=== PATIENT | female | born 1980 | race Caucasian/White ===

== ENCOUNTER → 2016-05-13 | Outpatient (CLI) | payer OTHER ==
--- NOTE | 2016-05-13 13:52 | US ---
May 13, 2015 Dear Providers at [facility], Thank you for requesting consultation and a detailed obstetrical ultrasound for Mrs. Castano secondary to advanced maternal age and exposure to styrene. As you know, Susan is a 35 year-old 2, para 1001. Her due date is 08/26/16 by LMP and first trimester ultrasound (baby was 6 days larger). Her current gestational age based on this dating is 25 weeks 0 days. Her genetic screening revealed a r eassuring NIPT. Susan reports that she has had a styrene exposure through the pipes at her rental. Both she and her hu hirenand experienced headaches, and nausea and vomiting for about a 7-10 days span and would have to yuli ve the house frequently to feel better. She states that the city had been out on several conditions to inspect but by her report nothing was done and it was said to be a problem with the house as this procedure of blowing styrene through the pipes is common. Ultimately, she has moved in with family t o keep herself from being sick and out of concern for her . ULTRASOUND Number of fetuses: 1 Placental location: Anterior Placental Cord Insertion: Intraplacental presentation: Cephalic Cervix: 5.5 cm viewed transabdominally Maximum vertical pocket: 4.7 cm The adnexa were evaluated. No pathology was seen. Right ovary is visualized and appears normal. It measures 2.1 x 1.2 x 2.3 cm. Left ovary is visualized with an unresolved corpus luteum. The ovary measures 2.0 x 1.3 x 2.5 cm. MEASUREMENTS: Biparietal diameter: 65 mm 26 weeks, 3 days Head circumference: 242 mm 26 weeks, 3 days Abdominal circumference: 227 mm 27 weeks, 1 days Femur length: 50 mm 27 weeks, 0 days Humerus length: 46 mm 27 weeks, 1 days Transcerebellar diameter: 29 mm 25 weeks, 3 days Average ultrasound age: 26 weeks, 6 days Estimated weight: 1002 gm weight percentile: 98 %; if dates are adjusted to her first ultrasound ([place] and consistent with my ultrasound at 12 weeks) the baby measures at the 83rd%ile. ANATOMY Supratentorial brain: Normal including choroids, falx and cavum septum pellucidum Lateral Ventricle: Normal; measurement: 3.6 mm Posterior fossa: Normal including the cerebellum and cisterna magna Spine: Normal Nuchal fold: not applicable at this gestational age Face: Normal views of the lip and nose area Profile: Normal Palate: Limited, but normal appearing views Cardiac Exam: Four chamber view of the heart: Normal including intraventricular septum Left Ventricular Outflow Tract: Normal Right Ventricular Outflow Tract: Normal 3 Vessel View: Normal Tracheal View: Suboptimal Aortic Arch: Normal Ductal Arch: Normal SVC/IVC: Normal Heart Rate: 146 bpm Diaphragm: No overt abnormalities have been detected Stomach: Normal Umbilical cord insertion: Normal Right kidney: Normal Left kidney: Normal Bladder: Normal Number of cord vessels: Three Upper extremities: Normal including the number, and architecture Lower extremities: Normal including the number and architecture Gender: Female IMPRESSION: 1. Intrauterine at 25w 0d, ROLO of 08/26/16. Suspect a dating discrepancy based on 910 we ek ultrasound performed in [place] consistent with my 12 week ultrasound. Recommend redating the pre gnancy to ROLO of 08/20/16. 2. Today's sonogram reveals a normal appearing fetus. 3. Cervical length measures 5.5 cm, and is without evidence of insufficiency. 4. Advanced maternal age; reassuring NIPT. 5. Styrene exposure RECOMMENDATIONS: I was pleased to review today's ultrasound with your patient. I have reassured her that the gr owth and amniotic fluid volume are appropriate for this gestational age. The detailed anatomic surve y did not reveal any overt abnormalities. Susan is aware that ultrasound is a screening tool an d cannot provide definitive genetic diagnosis. Should she desire definitive genetic diagnosis, she w ould need to have a genetic amniocentesis performed. After our discussion regarding the procedure, b enefits, risks, alternatives, and limitations to the information received Susan DECLINES amniocentesis. We also spent time reviewing the available data regarding styrene as it relates to . This i s an environmental toxin with exposure data for humans in industrial positions. There is also animal data available. I gave Susan a copy of the REPROTOX data that has been collected. She is aware that it is a hydrocarbon used int he manufacture of plastics and synthetic rubbers. She did experience sy mptoms as related to the exposure by her report that were irritants including headaches and nausea th at all resolved when she was away from her home. The data on styrene is that it should not increase the risk of defects. The other data regarding occupational exposure is mixed and mainly pertai ns to reproductive risk. I did explain that ultrasound evaluates for abnormal structure but cannot e mercy evaluate for function or development. Given the exposure, I did recommend ultrasound monthly to assure appropriate interval growth. In summary, I recommend: 1. Growth monthly through the remainder of . 2. Reassurance given for the normal appearance of the anatomy on today's ultrasound. I am hopeful t hat her exposure risk is limited and that her personal risk is low. Future ultrasound and consultation is left to your clinical discretion. Thank you for allowing me the opportunity to consult and evaluate your patient. Should you have any questions or concerns please do not hesitate to contact me. This visit was approximately 25 minutes in length with 15 minutes spent in direct face to face consultation reviewing aneuploidy screening ve rsus definitive genetic diagnosis. Sincerely, Lucina James MD [employer] Maternal Medicine Department of Obstetrics & Gynecology [facility]
--- NOTE | 2016-05-13 15:26 | US ---
Detailed Obstetric Ultrasound Indication: Evaluate growth and anatomy. Patient exposed to styrene. Advanced maternal age. Comparison: February 12, 2016 Dr. Lucina James was present during imaging. Findings: Biometry: Average gestational age by ultrasound: 26 weeks 6 days with EDC by ultrasound of August 13, 2016. Estimated gestational age by corrected LMP: 25 weeks 6 days within EDC by corrected LMP of August 20, 2016. Maternal Ovaries: Normal in appearance with the left ovary measuring 1.2 x 0.9 x 1.4 cm in the right ovary measuring 2.3 x 1.2 x 2.1 cm. Number: 1 Presentation: Vertex Placental location: Anterior without previa. Central umbilical cord insertion. Cervix: 5.5 cm from transabdominal measurement Amniotic fluid maximum vertical pocket: 4.7 cm Biparietal diameter: 26 weeks 3 days, 6.53 cm Head circumference: 26 weeks 3 days, 24.24 cm Abdominal circumference: 27 weeks 1.0 day, 22.70 cm Femur length: 27 weeks, 5.02 cm Humerus length: 27 weeks 1.0 day, 4.59 cm Transcerebellar diameter: 25 weeks 3 days, 2.90 cm Estimated weight is 1002 gms ( 2 pounds 3 ounces ). The estimated weight is at the 98th p ercentile based on LMP. Anatomy Survey: Supratentorial brain: Normal Posterior fossa: Normal Spine: Normal Nose and lips: Normal Profile: Normal Heart: Four chamber heart with normal interventricular septum heart rate of 146 bpm. RVOT: Normal LVOT: Normal Stomach: Normal Bowel: Normal echogenicity. Umbilical cord insertion: Normal Kidneys: Normal, no pyelectasis Bladder: Normal Number of cord vessels: Three Upper extremities: Normal Lower extremities: Normal Gender: Female Impression: 1. Living cloud in vertex presentation. 2. There has been adequate interval growth since the prior study. The estimated weight is at th e 83rd percentile with respect to corrected LMP. 3. Unremarkable anatomy. No anomalies detected.
== END ==
LOC: FIMAGING 10:13
PROVIDERS: ATTEND Obstetrics & Gynecology
DX: O09.522 Supervision of elderly multigravida, second trimester (principal); Z3A.25 25 weeks gestation of pregnancy; Z77.9 Other contact with and (suspected) exposures hazardous to health

== ENCOUNTER → 2016-06-10 | Outpatient (CLI) | payer OTHER ==
--- NOTE | 2016-06-10 10:49 | US ---
June 10, [address] Waldrop and [facility] Providers, Thank you for requesting consultation and a follow up ultrasound for your patient, Ms. Fredy hartmann. As you know, Susan is a 35 year old G 2, P 1001 . Her due date is 08/26/16 by LMP and your first trimester ultrasound (6 days different). On imaging done in our office we suggested and ROLO of secondary to macrosomia. Her current gestational age based on this dating is is 29 weeks 6 days. She is seen today for a follow up assessment of growth. In our previous consultation we discussed e xposure to Styrene in , please see my previous report. Susan performed a Glucola but it was not processed in the appropriate time frame. She was 15 minutes l ate with a result of 90 mg/dL. ULTRASOUND Number of fetuses: 1 Placental location: Anterior presentation: Cephalic Heart Rate: 143 bpm Cervix: 4.5 cm viewed transabdominally Maximum Vertical Pocket: 8.0 cm Amniotic fluid index: 16.9 cm Measurements: Biparietal diameter: 74 mm 30 weeks, 0 days Head circumference: 280 mm 30 weeks, 5 days Abdominal circumference: 283 mm 32 weeks, 3 days Femur length: 60 mm 31 weeks, 3 days Humerus length: 54 mm 31 weeks, 3 days Transcerebellar diameter: 36 mm 30 weeks, 1 days Average age by ultrasound: 21 weeks, 1 days Estimated weight: 1807 gm weight percentile: 92 % using ORLO of 08/20 or >98% using ROLO of 08/26/16. ANATOMY anatomy was previously assessed. Today the following structures were visualized and appeared n ormal: Stomach, bilateral kidneys, bladder, three-vessel cord, four-chamber view of the heart, right ventricular outflow tract, cerebellum, cavum septum pellucidum, lateral ventricle views of the lip and nose area, and limited views of the palate. IMPRESSION: 1. Intrauterine at 29 weeks, 6 days; ROLO of 08/20/16. 2. growth is macrosomic at the 92nd%ile with abdomen over 2 weeks ahead of biometry. 3. anatomy was previously assessed and today's ultrasound continues to provide reassurance of normal appearing anatomy. 4. Normal amniotic fluid volume RECOMMENDATIONS: We reviewed today's ultrasound findings. The baby is macrosomic with the abdomen measuring ove r 2 weeks ahead of the other biometry. The amniotic fluid volume is normal. Our review of the anatomy is normal. We discussed the sizing of the baby and reviewed her most recent Glucola. Given that it was not proc essed in the appropriate time frame and her fetus is measuring larger, I do recommend a repeat evalua tion. If she exceeds 130 mg/dL, I would do a 3 hour GTT to assure an appropriate evaluation or you c ould just move to a 3 hour GTT for testing. Susan asked if this meant she would delivery early. I explained that we do not recommend delivery befor e 39 weeks as it did not improve the ability for a vaginal attempt and perhaps incurred additio nal maternal/ risks. However, delivery at 39 weeks and beyond is preserved. We are happy to reassess growth at 34-36 weeks at your clinical discretion. Thank you for allowing us the opportunity to evaluate your patient. Should you have any further ques tions or concerns please do not hesitate to contact me. Approximately 15 minutes were spent with the patient and 10 minutes were spent in face to face consu ltation. Lucina James MD [employer] Maternal Medicine Diagnosis Department of Obstetrics & Gynecology [facility]
--- NOTE | 2016-06-10 18:40 | US ---
Ultrasound Obstetric Follow Up Indication: Follow-up growth. The estimated gestational age by LMP is 29 weeks and 6 days yielding an EDC of 08/20/2016. Comparison: May 13, 2016 Findings: Number: 1 Presentation: Vertex Placental Location: Anterior without previa Cervix: 4.5 cm Amniotic MVP: 8 cm, amniotic fluid index 16.9 cm BIOMETRY: Biparietal Diameter: 74.45 mm 30 weeks, 0 days Head Circumference: 279.50 mm 30 weeks, 5 days Abdominal Circumference: 282.75 mm 32 weeks, 3 days Femur Length: 60.33 mm 31 weeks, 3 days Humerus Length: 53.93 mm 31 weeks, 3 days Transcerebellar Diameter: 36.26 mm 30 weeks, 1 days HC/AC: 0.99 (0.99-1.21) FL/BPD: 81% FL/AC: 21% Average Ultrasound Age: 31 weeks, 1 days EDC based on today's average ultrasound age: 408/11/2016 Estimated weight is 1807 gms +/- 264 gms. The estimated weight is at the 92 % based on pr evious dating. ANATOMY: Previous evaluated. FHR 143 bpm. On today's study the stomach, bilateral kidneys, bladder, three-vessel cord, four-chambe r view of the heart, demonstrate no definite abnormalities. Impression: 1. Living cloud in vertex presentation. 2. Macrosomia at the 92 percentile. 3. Normal amniotic fluid volume. 4. Please see Dr. Lucina James's consult and recommendations.
== END ==
LOC: FIMAGING 09:50
PROVIDERS: ATTEND Obstetrics & Gynecology
DX: O36.63X0 Maternal care for excessive fetal growth, third trimester, not applicable or unspecified (principal); O09.523 Supervision of elderly multigravida, third trimester; Z3A.29 29 weeks gestation of pregnancy; Z77.9 Other contact with and (suspected) exposures hazardous to health

== ENCOUNTER → 2016-07-28 | Day surgery (SDC) | payer OTHER ==
[~2016-07-28] MED LIST: BUPIVACAINE 0.5% 30 ML SDV ONE; BUPIVACAINE/EPI 0.5% 30 ML SDV ONE; LIDO/EPI 1% **for epidural** 30 ML SDV ONE; OXYCODONE/APAP 5/325 TAB PO SCH; THROMBIN (BOVINE) 20,000 UNIT VIAL TP ONE
--- NOTE | 2016-07-28 16:45 | EDPHY ---
HPI/HX/ROS/PE/MDM Narrative: CHIEF COMPLAINT: with hemorrhoids. HPI: The patient is a 35-year-old female 37 weeks who presents with hemorrhoids that began a week ago and have been worsening over that period of time. She does have a history of hemorrhoids and has had to have 3 surgically removed. The hemorrhoids today are worse than usual for her. She denies fever, vomiting, diarrhea, shortness of breath, or other complaints. She has been treating the hemorrhoids with hemorrhoid creams and ice to no effect. REVIEW OF SYSTEMS: Aside from elements discussed in the HPI, a comprehensive 10-point review of systems was reviewed and is negative. PMH: Hemorrhoids. SOCIAL HISTORY: Mother. PHYSICAL EXAM: General: Patient is alert, in no acute distress. ENT: Eyes are normal to inspection. ENT inspection normal. Neck: Normal inspection. Full range of motion. Respiratory: No respiratory distress. Breath sounds normal bilaterally. Cardiovascular: Regular rate and rhythm. Strong peripheral pulses. Abdomen: The abdomen is nontender to palpation. There are no peritoneal signs. There are normal bowel sounds. Rectal exam: Large thrombosed external hemorrhoid. Back: Normal to inspection. No tenderness to palpation. Skin: Normal color. No rash. Warm and dry. Extremities: Normal appearance. Full range of motion. Neuro: Oriented x3. Normal motor function. Normal sensory function. Portions of this note were transcribed by an ED scribe. I personally performed the history, physical exam, and medical decision making; and confirm the accuracy of the information in the transcribed note. ED Course: 1650: Consulted with Dr. Camarillo, surgery. He will assess the patient in the emergency department. 1739: Consulted with Dr. Camarillo. He will take the patient to the OR. General Time Seen by Provider: 07/28/16 16:40 Initial Vital Signs: Initial Vital Signs Temperature (C) 36.6 C 07/28/16 16:22 Heart Rate 90 07/28/16 16:22 Respiratory Rate 18 07/28/16 16:22 Blood Pressure 118/78 07/28/16 16:22 O2 Sat (%) 98 07/28/16 16:22 O2 Delivery Mode Room Air Allergies/Adverse Reactions: Sulfa (Sulfonamide Antibiotics) Allergy (Unknown, Verified 05/06/15 18:29) as med Home Medications: Medication Instructions Recorded NK [No Known Home Meds] 05/06/15 Departure - Departure Disposition: To OP Cath/Surgery Clinical Impression: External hemorrhoid, thrombosed Condition: Fair Referrals: VENITA RENDON [Other] - As per Instructions Report Scribed for: Yang Nair Report Scribed by: Ten Paris Date of Report: 07/28/16 Time of Report: 16:45
[2016-07-28 18:36] VITALS: BP 120/70; PULSE 89; RESP 16; TEMP 98.4; O2SAT 99
--- NOTE | 2016-07-28 20:09 | GHP ---
[f rep st] PREOP HISTORY AND PHYSICAL DATE OF ADMISSION: 07/28/2016 HISTORY OF PRESENT ILLNESS: A 35-year-old female who is 37 weeks who presents with thrombo sed external hemorrhoid. They are quite painful. She is admitted at this time for external hemorrh oidectomy. Risks and options have been fully discussed and she wishes to proceed. PAST MEDICAL HISTORY: Includes a previous hemorrhoidectomy many years ago. 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 PAST SURGICAL HISTORY: Had some nasal surgery and multiple orthopedic procedures. MEDICATIONS: None. ALLERGIES: Sulfa. REVIEW OF SYSTEMS: Reveals no cardiopulmonary symptoms, diabetes, asthma, any other major medical p roblems on a full review of systems. SOCIAL HISTORY: She does not smoke. FAMILY HISTORY: Noncontributory. PHYSICAL EXAMINATION: GENERAL: An alert 35-year-old female in no acute distress. HEAD AND NECK: No adenopathy or icterus or thyromegaly. CHEST: Clear and symmetric. CARDIAC: Regular rhythm. A BDOMEN: Soft. She is 37 weeks . There are no hernias. EXTREMITIES: Full range of motion . Full pulses. RECTUM: Two areas of thrombosed external hemorrhoids which are quite tender. Unab le to be fully examined in the emergency room. IMPRESSION: Thrombosed external hemorrhoids. PLAN: Excision. Risks and options have been fully discussed and she wishes to proceed. /[id number]/MODL
== END | disposition home or self-care (01) ==
LOC: FSGY 18:34
PROVIDERS: ATTEND Surgery
PROC: 06BY0ZC Excision of Hemorrhoidal Plexus, Open Approach (ICD-10-PCS; principal; 2016-07-28 19:25)
DX: O22.43 Hemorrhoids in pregnancy, third trimester (principal); Z3A.37 37 weeks gestation of pregnancy

== ENCOUNTER 2016-08-22 06:00 | Inpatient (IN) | payer OTHER ==
[2016-08-22] MEDS ORDERED: OXYTOCIN/RINGERS LACTATE 1,000 ML IV PRN (07:18)
[2016-08-22] MEDS ORDERED: OLIVE OIL 118 ML BTL MISC PRN (07:18)
[2016-08-22] MEDS ORDERED: LR 1,000 ML IV PRN (07:18)
[2016-08-22] MEDS ORDERED: TERBUTALINE SULFATE 1 MG/ML VIAL IV PRN (07:18)
[2016-08-22] MEDS ORDERED: LIDOCAINE 1% 30 ML SDV SC PRN (07:18)
[2016-08-22] MEDS ORDERED: EPSOM SALT 454 GM TP PRN (07:18)
[2016-08-22 07:47] LABS: % IMMATURE GRANULYOCYTES 0.9 % (0.0-1.1); ABSOLUTE IMMATURE GRANULOCYTES 0.08 10^3/uL (0.00-0.10); ADD DIFF? NO; ADD MORPH? NO; ADD SCAN? NO; ATYPICAL LYMPHOCYTE FLAG 0 (0-99); FRAGMENT RBC FLAG 0 (0-99); HEMATOCRIT 39.3 % (38.0-47.0); HEMOGLOBIN 13.2 g/dL (12.6-16.3); LEFT SHIFT FLG 0 (0-99); LIPEMIA HEMOLYSIS FLAG 80 (0-99); MEAN CELL HEMOGLOBIN 29.9 pg (27.9-34.1); MEAN CELL HEMOGLOBIN CONCENTR. 33.6 g/dL (32.4-36.7); MEAN CELL VOLUME 88.9 fL (81.5-99.8); MEAN PLATELET VOLUME 10.8 fL (8.7-11.7); PLATELET CLUMPS FLAG 10 (0-99); PLATELET COUNT 228 10^3/uL (150-400); RED BLOOD CELL COUNT 4.42 10^6/uL (4.18-5.33); RED CELL DISTRIBUTION WIDTH 13.4 % (11.5-15.2)
[2016-08-22] MEDS ORDERED: OXYTOCIN/LR *STANDARD DOSE PROTOCOL IV SCH (08:30)
[2016-08-22] MEDS ORDERED: OLIVE OIL 118 ML BTL ONE (09:42)
[2016-08-22] MEDS ORDERED: LIDOCAINE 1% 30 ML SDV ONE (09:42)
[2016-08-22] MEDS ORDERED: AMMONIA AROMATIC 1 EACH AMP IH ONE (09:43)
[2016-08-22] MEDS ORDERED: MISOPROSTOL 200 MCG TAB ONE (09:43)
[2016-08-22] MEDS ORDERED: OXYTOCIN 10 UNIT/ML VIAL ONE (09:43)
[2016-08-22] MEDS ORDERED: TERBUTALINE SULFATE 1 MG/ML VIAL ONE (09:43)
[2016-08-22] MEDS ORDERED: LIDOCAINE 2% JELLY 5 ML TUBE ONE (10:24)
[2016-08-22] MEDS ORDERED: fentaNYL 2MCG/ML/BUP 0.1% RTU 100 ML BAG EP ONE (11:07)
[2016-08-22] MEDS ORDERED: BUPIVACAINE 0.25% 30 ML SDV ONE (11:08)
[2016-08-22] MEDS ORDERED: PHENYLEPHRINE HCL 100 MCG/ML SYR ONE ×2 (11:08→19:29)
[2016-08-22] MEDS ORDERED: fentaNYL 100 MCG/2 ML INJ ONE ×2 (11:08→18:11)
[2016-08-22] MEDS ORDERED: PHENYLEPHRINE HCL 100 MCG/ML SYR IVP PRN (12:09)
[2016-08-22] MEDS ORDERED: ONDANSETRON 4 MG/2 ML VIAL IVP PRN (12:09)
--- NOTE | 2016-08-22 12:11 | GHP ---
[f rep st] PREOP HISTORY AND PHYSICAL DATE OF ADMISSION: 08/22/2016 ADMISSION DIAGNOSES: 1. Intrauterine at 40 and 2/7 weeks gestation. 2. Suspected macrosomia, declines primary low transverse section. HISTORY OF PRESENT ILLNESS: Patient is a 35-year-old, 2, para 0010, at 40 and 2/7 weeks ges tation. Patient initiated care at [facility] at 8 weeks 4 days. The was unplan [place], and patient took misoprostol to induce termination in the 1st trimester, but this failed. Afte r the failed termination, patient elected to continue on with the . Patient is dated by a 1st-trimester ultrasound. Patient's was complicated by early exposure to styrene for whic h she had serial growth ultrasounds. Patient's growth ultrasound showed an estimated weight o f 98th percentile. Patient in the suggested that she was further along with her . Her initial visit was at 8 weeks 4 days consistent with a 1st-trimester ultrasound. She did have an ultrasound several weeks later at an [facility] who suggested that her due date be changed so she would be 4 days further along. We ultimately, per patient request since it was just 5 days different, en ded up changing her due date to 08/20 instead of 08/26. The patient was followed with this pregnanc y with serial growth ultrasounds. The baby has consistently been greater than 98th percentile. Keli rosario had a final growth ultrasound done on Friday which showed an estimated weight of 10 pound s 14 ounces +/- 25 ounces. Estimated weight was essentially 5000 g. A long discussion was kee d with the patient about recommendation for primary low transverse section because of the s ignificant risk of shoulder dystocia if she does have a vaginal delivery. We had a very long discus mekhi about the rationale for this recommendation as well as the fact that growth ultrasounds of larg g-vku-yaxzkvvjjnb-age babies are less accurate, so this estimate could be over estimating or under e stimating the baby's weight. The patient has declined primary section and strongly desires to attempt a vaginal delivery. We have had a long discussion about the risks of Pitocin for prolon ged periods of time and a qbyhe-xam-hafynfepdir-age baby and increased risk of hemorrhage and the implications of that. Patient is agreeable to proceed with induction of labor. Patient do es not tolerate cervical exams well, and patient declined to have a Saldivar bulb placed in the office. We did attempt to place a Saldivar bulb with nitrous oxide while in the hospital, but patient was not able to tolerate the exam then either, so patient is going to have an epidural placed, and we will proceed from there. MEDICAL HISTORY: Significant for HSV 1. She does have a history of cold sores. No history of any genital outbreaks. 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 MEDICATIONS: vitamins and iron. SURGICAL HISTORY: Hemorrhoid surgery, cardiac ablation, foot surgery to remove a heel spur, nasal s eptoplasty, biopsy of benign lump in breast, therapeutic in 2013. ALLERGIES: Sulfa which she is not certain of the results. SOCIAL HISTORY: Patient is single, father of the baby is not involved in the at all. She works as an IT tech. She denies tobacco, alcohol, or drug use. FAMILY MEDICAL HISTORY: Noncontributory. [employer] HISTORY: Menarche age 13. Periods every 26-28 days, lasting 4 days. She is a 2, pa ra 0010. In 2013, she had a surgical termination of . Current has been uncompli cated with the exception of early attempt of termination with misoprostol which failed and styrene e xposure for which she had serial growth ultrasounds as this baby is suspected to be large for gestat ional age. Patient does have a history of abnormal Pap smears and HPV. Re-Paps have been negative. She has not had any procedures done on her cervix. She does have a history of HSV 1. No general outbreaks. PHYSICAL EXAMINATION: VITAL SIGNS: Stable. GENERAL APPEARANCE: Alert and oriented x3. HEART: R ate is regular regular. LUNGS: Clear to auscultation bilaterally. ABDOMEN: Gravid, nondistended, nontender. EXTREMITIES: Reveal no calf tenderness or edema. PELVIC: Her cervix is closed, soft, and posterior. Infant is in the vertex presentation. heart tracing was category 1, and she is having regular contractions. ASSESSMENT AND PLAN: 35-year-old, 2, para 0010, at 40 and 2/7 weeks gestation here for chapo ction of labor for suspected macrosomia. We have had a long discussion of the recommendations for p rimary low transverse section with an estimated weight of greater than 5000 g. Feng nt declines this and would like to have an induction of labor. She is receiving an epidural now, an d we will attempt to place a Saldivar catheter once the patient is more comfortable and able to tolerat e pelvic exams. We have had a long discussion about not doing high-dose Pitocin for long periods of time and re-evaluating in several hours. /[id number]/MODL
--- NOTE | 2016-08-22 12:17 | PREANESOB ---
Obstetric Pre-Anesthesia Info - General Info Proposed Procedure: Labor and delivery. : 2 Para: 0 WBD: 40 - Info Status: Full Term Monitors: External FHR Baseline (bpm): 130 FHR Pattern: Reassuring - Labor Status Cervical Dilation per last OB SVE: 0 Pitocin: In Use Indications for Labor Analgesia: Induction of Labor, Pain Control Labor Epidural: Proposed Anesthesia ROS: Previous general anesthesia without problem except possible recall during hemorrhoid surgery. Past cardiac ablation for WPW syndrome. Allergies/Adverse Reactions: Allergy/AdvReac Type Severity Reaction Status Date / Time Sulfa (Sulfonamide Allergy Unknown as med Verified 05/06/15 18:29 Antibiotics) Home Medications: Medication Instructions Recorded Vit27&Calcium/Iron/FA 1 tab PO DAILY 08/22/16 [] Visit Medications: Generic Name Dose Route Start Last Admin Trade Name Freq PRN Reason Stop Dose Admin Diphenhydramine HCl 25 - 50 mg 08/22/16 12:09 Benadryl Injection IVP 02/18/17 12:08 Q6HRS PRN Itching Lactated Ringer's 1,000 mls @ 0 mls/hr 08/22/16 07:18 08/22/16 08:40 Lr IV 02/18/17 07:17 1,000 mls PRN PRN Administration SEE PROTOCOL CONDITIONS Protocol Per Protocol Oxytocin/Lactated Ringer's 1,000 mls @ 150 mls/hr 08/22/16 07:18 Pitocin 20 Units/Lr (Premix) IV PRN PRN Post- bleeding Oxytocin/Lactated Ringer's 500 mls @ 0 mls/hr 08/22/16 08:30 08/22/16 08:41 Pitocin 30 Units/Lr (Premix) IV 02/18/17 08:29 500 mls CONT DARA Administration Protocol Per Protocol Fentanyl/Bupivacaine HCl 100 mls @ 0 mls/hr 08/22/16 12:30 Fentanyl/Bupivacaine/Ns 2 Mcg/Ml 0.1% (Premix EP 09/01/16 12:29 CONT DARA Protocol As Directed Lactated Ringer's 500 mls @ 0 mls/hr 08/22/16 12:30 Lr IV 02/18/17 12:29 CONT DARA As Directed Ibuprofen 600 mg 08/22/16 07:18 Motrin PO 02/18/17 07:17 Q6HRS PRN post , inflammation Lidocaine HCl 30 ml 08/22/16 07:18 Lidocaine Hcl 1% SC 02/18/17 07:17 ONCE PRN Episiotomy Magnesium Sulfate 454 gm 08/22/16 07:18 Epsom Salt TP 02/18/17 07:17 PRN PRN perineal discomfort [place] Oil 118 ml 08/22/16 07:18 Sweet Oil MISC 02/18/17 07:17 ONCE PRN preneal massage Ondansetron HCl 4 mg 08/22/16 12:09 Zofran IVP 02/18/17 12:08 Q4HRS PRN Nausea/Vomiting, Can't Take PO Phenylephrine HCl 100 mcg 08/22/16 12:09 Aki-Synephrine IVP 02/18/17 12:08 .Q2M PRN Hypotension Terbutaline Sulfate 0.25 mg 08/22/16 07:18 Brethine IV 02/18/17 07:17 ONCE PRN Tachysystole Discontinued Medications Generic Name Dose Route Start Last Admin Trade Name Freq PRN Reason Stop Dose Admin Ammonia (Aromatic Spirit) Confirm 08/22/16 09:43 Ammonia Aromatic Administered 08/22/16 09:44 Dose 1 each IH .STK-MED ONE Bupivacaine HCl Confirm 08/22/16 11:08 Sensorcaine 0.25% Sdv Administered 08/22/16 11:09 Dose 30 ml .ROUTE .STK-MED ONE Ephedrine Sulfate Confirm 08/22/16 09:43 Ephedrine Sulfate Administered 08/22/16 09:44 Dose 50 mg .ROUTE .STK-MED ONE Fentanyl Confirm 08/22/16 11:08 Sublimaze Administered 08/22/16 11:09 Dose 100 mcg .ROUTE .STK-MED ONE Fentanyl/Bupivacaine HCl Confirm 08/22/16 11:07 Fentanyl/Bupivacaine/Ns 2 Mcg/Ml 0.1% (Premix Administered 08/22/16 11:08 Dose 100 ml EP .STK-MED ONE Lidocaine Confirm 08/22/16 10:24 Lidocaine 2% Jelly Administered 08/22/16 10:25 Dose 5 dilip .ROUTE .STK-MED ONE Lidocaine HCl Confirm 08/22/16 09:42 Lidocaine Hcl 1% Administered 08/22/16 09:43 Dose 30 ml .ROUTE .STK-MED ONE Misoprostol Confirm 08/22/16 09:43 Cytotec Administered 08/22/16 09:44 Dose 1,000 mcg .ROUTE .STK-MED ONE [place] Oil Confirm 08/22/16 09:42 Sweet Oil Administered 08/22/16 09:43 Dose 118 ml .ROUTE .STK-MED ONE Oxytocin Confirm 08/22/16 09:43 Pitocin Administered 08/22/16 09:44 Dose 40 unit .ROUTE .STK-MED ONE Phenylephrine HCl Confirm 08/22/16 11:08 Aki-Synephrine Administered 08/22/16 11:09 Dose 1,000 mcg .ROUTE .STK-MED ONE Terbutaline Sulfate Confirm 08/22/16 09:43 Brethine Administered 08/22/16 09:44 Dose 1 mg .ROUTE .STK-MED ONE - Anesthesia History Response to Local Anesthetics: Normal Anesthesia & Operative History: Prob w/Prior Anesthesia Family Anesthesia History: Negative - Social History Substance Use/Abuse: Denies - Focused Exam Blood Pressure: 121/65 Heart Rate: 70 Respiratory Rate: 16 Height/Weight (Nursing): Height 172.72 cm Weight 83.915 kg Physical Exam: Within normal limits. ASA Status: II Labs: 08/22/16 07:30 Patient ABO/Rh O POSITIVE 08/22/16 07:30 - Plan Anesthetic Plan: CSE Consent Signed and on Chart: Yes Patient/Guardian Understands and Agrees to Plan: Yes
--- NOTE | 2016-08-22 12:22 | POSTANESTH ---
Post Anesthetic Evaluation Cardiovascular Status: Normal, Stable Respiratory Status: Normal, Stable, Similar to Pre-op Cond. Level of Consciousness/Mental Status: Can Participate in Eval, Alert and Oriented (Tolerated CSE well, stable after phenylephrine x 1, comfortable.) Pain Control: Adequate, Prn Tx Ordered Nausea/Vomiting Control: Adequate, Prn Tx Ordered Complications Possibly Related to Anesthesia: None Noted
[2016-08-22] MEDS ORDERED: LR 500 ML IV SCH (12:30)
[2016-08-22] MEDS ORDERED: fentaNYL 2MCG/ML/BUP 0.1% RTU 100 ML EP SCH (12:30)
[2016-08-22] MEDS ORDERED: LIDOCAINE 2% JELLY 20 ML (UROJECT) UR ONE (12:30)
--- NOTE | 2016-08-22 15:49 | OBPROG ---
OBG Progress Note Assessment/Plan: Assessment: Plan: Subjective: late entry patient very comfortable with epidural. after patient had epidural a salazar catheter was placed in the bladder and a salazar was placed in her cervix. pitocin was continued. an hour later an exam was done and the salazar bulb was able to come out with gentle traction. arom. moderate amount of clear fluid was noted. an IUPC was placed without difficulty. long discssion was had with patient about next steps. the head is still high. status is reassuring. we will make sure contractions are adequate and then recheck her cervix. if no significant change in her cervix is noted then we will discuss primary section further. Objective: 08/22/16 07:30 Patient ABO/Rh O POSITIVE 08/22/16 07:30 Temp Pulse Resp BP Pulse Ox 70 16 121/65 H 08/22/16 12:20 08/22/16 12:20 08/22/16 12:20 - SVE Dilation (cm): 3 Effacement (%): 50 Station: -2 Current Contraction Pattern: Regular FHR Pattern Variability: Moderate FHR Category: 1 Membranes: AROM Amniotic Fluid Color: Clear
[2016-08-22] MEDS ORDERED: LIDO/EPI 2% **for epidural** 20 ML SDV ONE (18:11)
[2016-08-22] MEDS ORDERED: LR 500 ML IV ONE (18:16)
[2016-08-22] MEDS ORDERED: ceFAZolin 2 GM/DEXTROSE 100 ML IV ONE (18:16)
--- NOTE | 2016-08-22 18:19 | OBPROG ---
OBG Progress Note Assessment/Plan: Assessment: Plan: Subjective: patient has had adequate contractions x 4 hours and no change in the cervix. long discussion with patient and her family and appraisal specialist about management options. occasional late and variable decelerations noted. patient tearful but agreeable about proceeding with PLTCS. pitocin stopped. consent singed. anesthesia notified Objective: 08/22/16 07:30 Patient ABO/Rh O POSITIVE 08/22/16 07:30 Temp Pulse Resp BP Pulse Ox 70 16 121/65 H 08/22/16 12:20 08/22/16 12:20 08/22/16 12:20 - SVE Dilation (cm): 3 Effacement (%): 50 Station: -2 Current Contraction Pattern: Regular FHR Pattern Variability: Moderate FHR Category: 2
[2016-08-22] MEDS ORDERED: LR 1,000 ML IV SCH (18:30)
[2016-08-22] MEDS ORDERED: HEMABATE 250 MCG/1 ML AMP IM ONE (19:00)
[2016-08-22] MEDS ORDERED: METHYLERGONOVINE MAL 0.2 MG/ML INJ ONE (19:00)
[2016-08-22] MEDS ORDERED: OXYTOCIN 100 UNITS/10 ML VIAL ONE (19:10)
[2016-08-22] MEDS ORDERED: DEXAMETHASONE 4 MG/ML VIAL ONE ×2 (19:10)
[2016-08-22] MEDS ORDERED: morphINE PF 5 MG/10 ML INJ ONE (19:10)
[2016-08-22] MEDS ORDERED: ONDANSETRON 4 MG/2 ML VIAL ONE (19:17)
--- NOTE | 2016-08-22 19:55 | OBPROC ---
- Delivery Pre-op Diagnoses: IUP at 40 2/7 weeks, arrest of descent and dilation Post-op Diagnoses: same plus macrosomia Procedure: Primary, Low Transverse Surgeon: [facility] Shift Lead: Rosa Jackson Anesthesiologist: Zachery Burgos Anesthesia: Epidural Complications: None EBL: 800 - Info Infant A Delivery Date: 08/22/16 Delivery Time: 19:15 Sex of : Female Score (1 Min): 8 Score (5 Min): 9
[2016-08-22] MEDS ORDERED: MAGNESIUM HYDROXIDE 30 ML UDCUP PO PRN (19:56)
[2016-08-22] MEDS ORDERED: BISACODYL 10 MG SUPP PR PRN (19:56)
[2016-08-22] MEDS ORDERED: POLYETHYLENE GLYCOL 3350 17 GM PKT PO PRN (19:56)
[2016-08-22] MEDS ORDERED: LACTULOSE 20 GM/30 ML UDCUP PO PRN (19:56)
--- NOTE | 2016-08-22 20:11 | POSTANESTH ---
Post Anesthetic Evaluation Cardiovascular Status: Normal, Stable Respiratory Status: Normal, Stable, Similar to Pre-op Cond. Level of Consciousness/Mental Status: Can Participate in Eval, Alert and Oriented (Epidural dosed for C Section, to OR, BP treated, comfortable for surgery, to PACU, no pain or nausea.) Pain Control: Adequate, Prn Tx Ordered Nausea/Vomiting Control: Adequate, Prn Tx Ordered Complications Possibly Related to Anesthesia: None Noted
[2016-08-22] MEDS ORDERED: KETOROLAC 30 MG/1 ML SDV ONE (21:42)
[2016-08-22] MEDS: KETOROLAC 30 MG/1 ML SDV IVP SCH (21:44)
--- NOTE | 2016-08-22 21:53 | GOP ---
[f rep st] OPERATIVE REPORT DATE OF OPERATION: 08/22/2016 SURGEON: Dana Waldrop DO JOB HAND: SACHA Parmar. ANESTHESIOLOGIST: Zachery Burgos MD. PREOPERATIVE DIAGNOSIS: 1. Intrauterine at 40-2/7 weeks' gestation. 2. Arrest of dilation. 3. Arrest of descent. POSTOPERATIVE DIAGNOSIS: 1. Intrauterine at 40-2/7 weeks' gestation. 2. Arrest of dilation. 3. Arrest of descent. 4. Large for gestational age (macrosomia). PROCEDURE PERFORMED: Primary low transverse section. FINDINGS: 1. Viable female infant in the cephalic occiput anterior presentation delivered at 1915. Apgars were 8 and 9. 2. Head was not engaged within the pelvis. 3. Normal ovaries, uterus and tubes. 1. Intact placenta with 3-vessel cord. ESTIMATED BLOOD LOSS: 800 cc. INDICATIONS: Patient is 35-year-old 2, para 0-0-1-0 who is 40-2/7 weeks ' gestation. She has been followed for large for gestational age and had a growth ultrasound done on Friday which showed an estimated weight of 10 pound, 14 ounces. Management options were reviewed extensively with the patient. It was recommended that she have a primary low transverse section because of the estimated weight greater than 5000 g, but patient elected to proceed with induction of labor. She came in and Pitocin was then started. She did not tolerate pelvic exams even with nitrous oxide, so she received an epidural where we were ultimately able to place a Saldivar bulb. She did progress to 3 cm dilated. Membranes were artificially ruptured. A large amount of clear fluid was noted. Intrauterine pressure catheter was placed, and patient had adequate contractions for 4 hours and did not make any cervical change. She did not make change past 3 cm dilated, and the head did not descend. Management options were reviewed extensively with the patient, and the baby was noted to have late decelerations, so a decision was made to proceed with a primary low transverse section. Risks and benefits of the procedure were reviewed with the patient, and patient was properly consented. DESCRIPTION OF PROCEDURE: Patient was taken to the operating room with intravenous fluids in place. She was given 2 g of Ancef intravenously and placed on the operating room table. Her epidural was rebolused. Venodynes were placed on her lower extremities, and she was given 2 g of Ancef. A Saldivar catheter was already in place. She was then prepped and draped in the normal sterile fashion. Anesthesia was assessed and found to be adequate. A Pfannenstiel skin incision was then made 2 fingerbreadths above the pubic symphysis. The incision was then carried through to the underlying layer of fascia with the Bovie. The fascia was then nicked in the midline. A fascial incision was extended laterally. The superior aspect of the fascial incision was then grasped with the Alex's, tented up, and the underlying rectus muscle dissected off bluntly with the Bovie. Attention was then turned to the inferior aspect of the fascial incision, which, in a similar fashion, was then grasped with Alex's, tented up, and the underlying rectus muscle dissected off bluntly with the Bovie. The rectus muscle was then in the midline. The peritoneum was then identified, tented up, and entered sharply with the Metzenbaum scissors. The incision was extended superiorly and inferiorly with excellent visualization of the bladder. The bladder blade was then inserted. The vesicouterine peritoneum was then identified, tented up, and entered sharply with the Metzenbaum scissors. The incision was extended laterally, and a bladder flap was created digitally. The bladder blade was then reinserted. The uterus was then incised in low transverse fashion with a scalpel. The uterine incision was extended laterally. The infant's head was noted to be not wedged within the pelvis and was resting on the pubic symphysis. The head was then delivered through the incision in the occiput anterior presentation, and the remainder of the infant was delivered without difficulty. Cord was clamped x2 and cut. Cord blood was obtained, and the infant was handed off to an awaiting nurse practitioner. Intact placenta with 3-vessel cord delivered without difficulty. The uterus was then exteriorized and cleared of all clots and debris, and the bladder blade was then reinserted. [place] were then used to grasp the edges of the hysterotomy, and the uterine incision was then closed with 0 Vicryl in a running, locked fashion. A 2nd 0 Vicryl stitch was used to achieve hemostasis. Ovaries, uterus and tubes were unremarkable. The uterus was then returned to the patient 's abdomen, and the gutters were cleared of all clots and debris, and the hysterotomy remained hemostatic. Peritoneum was reapproximated with 3-0 Vicryl in a running fashion. Rectus muscle was reapproximated with 2-0 Vicryl in a running fashion. Fascia was closed with 0 Vicryl in a running fashion. Subcutaneous tissue was found to be hemostatic. Abigail's fascia was reapproximated with 2-0 Vicryl in a running fashion and subcuticular tissue was used to close the fascia in a running subcuticular fashion. The skin was then closed with abigail. Sponge, lap, and needle counts were correct x2. Patient was transferred to recovery room in stable condition. /[id number]/MODL MTDD
[2016-08-22] MEDS: SENNOSIDES/DOCUSATE SODIUM TAB PO SCH (22:38)
[2016-08-23] MEDS: KETOROLAC 30 MG/1 ML SDV IVP SCH ×2 (03:32→13:37)
[2016-08-23] MEDS: HYDROCODONE/APAP 5/325 TAB PO PRN ×4 (08:43→21:57)
[2016-08-23] MEDS: IBUPROFEN 600 MG TAB PO PRN ×3 (08:44→21:56)
[2016-08-23] MEDS: SENNOSIDES/DOCUSATE SODIUM TAB PO SCH ×2 (08:44→21:56)
[2016-08-23] MEDS ORDERED: MEASLES,MUMPS&RUBELLA VACC/PF 0.5 ML VIAL SC ONE ×2 (10:17→16:30)
--- NOTE | 2016-08-23 10:36 | SOAPPROG ---
SOAP Progress Note Assessment/Plan: Assessment: POD 1 s/p primary C/S mild anemia Plan: Routine care 08/23/16 10:32 Subjective: Pt doing well. Pain is controlled with ibu and [place]. bld is light. salazar is still in. Baby has worked on BF. Objective: Vital Signs Temp Pulse Resp BP Pulse Ox 36.2 C 52 L 18 95/61 L 96 08/23/16 08:00 08/23/16 08:00 08/23/16 08:00 08/23/16 08:00 08/23/16 08:00 Laboratory Results 08/23/16 03:40 08/22/16 08/23/16 08/24/16 05:59 05:59 05:59 Output Total 1800 600 Balance -1800 -600 Physical Exam - Physical Exam General Appearance: WD/WN Abdomen: non-tender, soft, other (bandage CDI, FF at umb) Pelvic Exam: vaginal bleeding (normal lochia) Extremities: non-tender, pedal edema (minimal) Neuro/Psych: normal mood/affect ICD10 Worksheet Patient Problems: Problems Problem Status Onset delivery delivered Acute
[2016-08-23] MEDS: DOCUSATE SODIUM 100 MG CAP PO PRN (21:56)
[2016-08-23 22:02] VITALS: RESP 16
[2016-08-24] MEDS: HYDROCODONE/APAP 5/325 TAB PO PRN ×5 (02:20→20:20)
[2016-08-24] MEDS: IBUPROFEN 600 MG TAB PO PRN ×4 (04:03→22:00)
[2016-08-24] MEDS: IRON POLYSAC/IRON HEME 28 MG TAB PO SCH (07:36)
[2016-08-24] MEDS: SENNOSIDES/DOCUSATE SODIUM TAB PO SCH ×2 (07:37→20:20)
--- NOTE | 2016-08-24 07:55 | SOAPPROG ---
SOAP Progress Note Assessment/Plan: Assessment:sore nipples reddened and tender pain managed well vs wnl ff@u scant rubra lochia incision well approximated voiding without difficulty passing gas feeling the urge to have a bm this morning Plan:day 2 expectant management 08/24/16 07:53 Subjective: HAving difficulty with . PAin well managed with pain medication. Recommending donor milk instead of a nipple shield to assist with pain relief with . Recommending expressing colostrum to breast after feeing and then applying lanolin. Apno cream recommended Objective: Vital Signs Temp Pulse Resp BP Pulse Ox 36.6 C 66 16 107/70 93 08/24/16 02:45 08/24/16 02:45 08/24/16 02:45 08/24/16 02:45 08/24/16 02:45 Laboratory Results 08/23/16 03:40 08/23/16 08/24/16 08/25/16 05:59 05:59 05:59 Output Total 1800 3200 Balance -1800 -3200 - Pending Discharge Pending Discharge Within 24 Hours: Yes Pending Discharge Date: 08/25/16 Pending Discharge Time: 11:00 Physical Exam - Physical Exam General Appearance: WD/WN, alert, no apparent distress Respiratory: chest non-tender, lungs clear, normal breath sounds Cardiac/Chest: regular rate, rhythm Abdomen: normal bowel sounds, non-tender, soft Pelvic Exam: vaginal bleeding (scant rubra lochia) Skin: normal color, warm/dry Extremities: normal range of motion, non-tender, normal inspection, swelling (1- 2+ bilaterally), Krissy's sign (negative bilaterally) Neuro/Psych: no motor/sensory deficits, alert, normal mood/affect, oriented x 3 ICD10 Worksheet Patient Problems: Problems Problem Status Onset delivery delivered Acute
[2016-08-24] MEDS: KETOROLAC 30 MG/1 ML SDV IVP SCH (15:39)
[2016-08-24] MEDS: DOCUSATE SODIUM 100 MG CAP PO PRN (20:20)
[2016-08-25] MEDS: HYDROCODONE/APAP 5/325 TAB PO PRN ×6 (00:06→20:11)
[2016-08-25] MEDS: IBUPROFEN 600 MG TAB PO PRN ×4 (04:05→22:04)
[2016-08-25] MEDS: SENNOSIDES/DOCUSATE SODIUM TAB PO SCH ×2 (10:11→20:11)
[2016-08-25] MEDS: DOCUSATE SODIUM 100 MG CAP PO PRN ×2 (10:11→20:11)
[2016-08-25] MEDS: IRON POLYSAC/IRON HEME 28 MG TAB PO SCH (10:13)
--- NOTE | 2016-08-25 13:58 | SOAPPROG ---
SOAP Progress Note Assessment/Plan: Assessment: POD 3 s/p primary C/S mild anemia Plan: Routine care 08/23/16 10:32 08/25/16 13:54 Subjective: Pt reports doing well except nipple pain from being chapped. using the APNO cream. Baby is latching well but added donor milk last noc to help satisfy baby. Urinating fine. Bld is like light menses. Swollen feet. Had a BM yesterday. States mood is ok but had a little 'sore nipple meltdown' last noc. Objective: Vital Signs Temp Pulse Resp BP Pulse Ox 36.2 C 78 16 119/71 96 08/25/16 07:20 08/25/16 07:20 08/25/16 07:20 08/25/16 07:20 08/25/16 07:20 Laboratory Results 08/23/16 03:40 08/24/16 08/25/16 08/26/16 05:59 05:59 05:59 Output Total 3200 Balance -3200 Physical Exam - Physical Exam General Appearance: WD/WN Abdomen: non-tender, soft, other (incision CDI, FF at umb -1) Pelvic Exam: vaginal bleeding (normal lochia) Extremities: non-tender, pedal edema (mod) Neuro/Psych: normal mood/affect ICD10 Worksheet Patient Problems: Problems Problem Status Onset delivery delivered Acute
[2016-08-25 20:48] VITALS: PULSE 77
[2016-08-26] MEDS: HYDROCODONE/APAP 5/325 TAB PO PRN ×3 (00:05→08:34)
[2016-08-26] MEDS: IBUPROFEN 600 MG TAB PO PRN (04:00)
[2016-08-26] MEDS: IRON POLYSAC/IRON HEME 28 MG TAB PO SCH (08:34)
[2016-08-26] MEDS: SENNOSIDES/DOCUSATE SODIUM TAB PO SCH (08:36)
--- NOTE | 2016-08-26 08:44 | OBPROG ---
OBG Progress Note Assessment/Plan: Assessment:sore nipples decreased redness from yesterday and tender pain managed well vs wnl ff@u scant rubra lochia incision well approximated with ss applied voiding without difficulty passing gas Plan:day 4 discharge to home with instructions discussed depresssion, ss infection clots vaginally pericare pain management slow return to normal activity rest, contraception, no driving for 2 weeks verbalized understanding of all of the above 08/24/16 07:53 08/26/16 08:38 Subjective: Doing well. Continuing to have nipple pain although better from yesterday Objective: 08/23/16 03:40 Patient ABO/Rh O POSITIVE 08/22/16 07:30 Temp Pulse Resp BP Pulse Ox 36.8 C 77 16 122/77 H 93 08/25/16 20:00 08/25/16 20:00 08/25/16 20:00 08/25/16 20:00 08/25/16 20:00 - Physical Exam General Appearance: WD/WN, alert, no apparent distress Respiratory: chest non-tender, lungs clear, normal breath sounds Cardiac/Chest: regular rate, rhythm Abdomen: normal bowel sounds Extremities: normal range of motion, swelling, Krissy's sign (negative bilaterally) DTR- Lower Extremities: Knee (R): 1+, Knee (L): 1+ Skin: normal color, warm/dry Neuro/Psych: no motor/sensory deficits, alert, normal mood/affect, oriented x 3 ICD10 Worksheet Patient Problems: Problems Problem Status Onset delivery delivered Acute
[2016-08-26 08:48] VITALS: BP 121/83; TEMP 97; O2SAT 95
[2016-08-26 12:55] LABS: BACTERIA TRACE /hpf (NONE SEEN)
== END 2016-08-26 14:00 | disposition home or self-care (01) | DRG 766 ==
LOC: FLD 06:38 → FOB 22:00
PROVIDERS: ADMIT Obstetrics & Gynecology; ATTEND Obstetrics & Gynecology
PROC: 0U7C7ZZ Dilation of Cervix, Via Natural or Artificial Opening (ICD-10-PCS; principal; 2016-08-22)
PROC: 10H073Z Insertion of Monitoring Electrode into Products of Conception, Via Natural or Artificial Opening (ICD-10-PCS; principal; 2016-08-22)
PROC: 10D00Z1 Extraction of Products of Conception, Low, Open Approach (ICD-10-PCS; principal; 2016-08-22)
DX: O32.4XX0 Maternal care for high head at term, not applicable or unspecified (principal); O36.8130 Decreased fetal movements, third trimester, not applicable or unspecified; O76 Abnormality in fetal heart rate and rhythm complicating labor and delivery; O36.63X0 Maternal care for excessive fetal growth, third trimester, not applicable or unspecified; O90.81 Anemia of the puerperium; Z3A.40 40 weeks gestation of pregnancy; Z37.0 Single live birth
CPT/HCPCS: J0690; J1100; J1885; J2210; J2274; J2370; J2405; J2590; J3010; J3105